=== PATIENT | female | born 1935 | race Caucasian/White ===

== ENCOUNTER → 2025-03-27 | Outpatient (CLI) | payer MEDICARE, SELFPAY ==
--- NOTE | 2025-03-27 09:40 | NM_ITS ---
PROCEDURE: BONE SCAN WHOLE BODY 03/27/2025 REASON FOR EXAM: RESTAGING METS BREAST CANCER TECHNIQUE: Anterior and posterior whole-body bone scan performed after radiopharmaceutical administration 20 RADIOPHARMACEUTICAL: mCi Technetium-99m MDP IV COMPARISON: CORRELATION WITH EXISTING RELEVANT IMAGING STUDIES (i.e. x-ray, MRI, CT, etc.): No existing relevant imaging study available , patient did not have a previous relevant imaging study. FINDINGS: A mild degree thoracolumbar levoscoliosis is present. Degenerative changes are seen throughout the spine (particularly the mid to lower lumbosacral spine), bilateral knees, and the fingers, including the bilateral 1st carpal-metacarpal joints. No findings are seen to suggest the presence of osseous metastatic disease. NM/Bone Scan Whole Body IMPRESSION: No scintigraphic evidence of osseous metastatic disease. Reading Location: [place] [id number]
== END | disposition home or self-care (01) ==
LOC: NM 09:29
PROVIDERS: PCP Student in an Organized Health Care Education/Training Program; Referring Provider Internal Medicine Hematology & Oncology; Visit Provider Internal Medicine Hematology & Oncology
DX: C50.911 Malignant neoplasm of unspecified site of right female breast (principal); C79.51 Secondary malignant neoplasm of bone; C50.912 Malignant neoplasm of unspecified site of left female breast; Z17.0 Estrogen receptor positive status [ER+]
CPT/HCPCS: 78306; A9503

== ENCOUNTER → 2025-04-18 | Outpatient (CLI) | payer MEDICARE, SELFPAY ==
--- NOTE | 2025-04-18 12:30 | CT_ITS ---
PROCEDURE: CT CHEST, ABD, PEL W/CONTRAST 04/18/2025 REASON FOR EXAM: RESTAGING METS BREAST CANCER IV CONTRAST TECHNIQUE: Chest, abdomen and pelvis CT with intravenous contrast. Coronal and Sagittal reconstruction series were provided. One or more dose reduction techniques were used (e.g., Automated exposure control, adjustment of the mA and/or kV according to patient size, use of iterative reconstruction technique. PATIENT PREPARATION: Per protocol CONTRAST: 87 mL Isovue-300 RADIATION DOSE SUMMARY: CTDlvol: 20.2 mGy DLP: 1375 mGycm COMPARISON: Bone scan on 03/27/2020 FINDINGS: CT CHEST: Lymph nodes: No significant thoracic lymphadenopathy. There is a prominent left pulmonic recess. Heart and Vasculature: No significant cardiomegaly. Mild coronary and aortic calcification. Lungs and Airways: Central airways are clear. Linear atelectasis or scarring at the left lung apex. No suspicious pulmonary nodule. Pleura: No effusion. Bones: Dense sclerotic focus in the T3 vertebral body, likely a bone island. Chest wall: Bilateral mastectomy. Surgical clips in the axillae. CT ABDOMEN/PELVIS: Liver: Normal size. No mass. Gallbladder: Surgically absent. Spleen: Normal size. Pancreas: Normal size without evidence of mass surrounding inflammation or ductal dilation. Adrenals: Unremarkable Kidneys: No hydronephrosis or stone. There are likely renal pelvic cysts bilaterally. Bladder: Unremarkable for degree of distention Reproductive Organs: Prior hysterectomy. Adnexal regions are unremarkable. Bowel: No obstruction or inflammation. Hiatal hernia. Normal appendix. Scant colonic diverticulosis. Lymph nodes: No suspicious lymphadenopathy. Vasculature: Moderate diffuse atherosclerotic calcifications are noted. Bones: There is sclerosis involving the S1 vertebral body and upper sacrum. Degenerative changes of the spine. CT/CT Chest, Abd, Pel w/Contrast IMPRESSION: 1. Sclerosis in the upper sacrum, concerning for metastatic disease. Correlat e with prior exams if available. 2. No evidence of metastatic disease in the chest. Reading Location: [id number]
== END | disposition home or self-care (01) ==
LOC: CT 12:28
PROVIDERS: PCP Student in an Organized Health Care Education/Training Program; Referring Provider Internal Medicine Hematology & Oncology; Visit Provider Internal Medicine Hematology & Oncology
DX: C50.911 Malignant neoplasm of unspecified site of right female breast (principal); C79.51 Secondary malignant neoplasm of bone; C50.912 Malignant neoplasm of unspecified site of left female breast; Z17.0 Estrogen receptor positive status [ER+]
CPT/HCPCS: 71260; 74177; Q9967